=== PATIENT | female | born 1990 | race Caucasian/White ===

== ENCOUNTER 2017-10-31 18:50 | Emergency (ER) | payer BC ==
--- NOTE | 2017-10-31 19:14 | EDM.PDOC ---
ED HPI GENERAL MEDICAL PROBLEM - General Chief Complaint: General Stated Complaint: face swelling Time Seen by Provider: 10/31/17 19:00 Source of Information: Reports: Patient History Limitations: Reports: No Limitations - History of Present Illness INITIAL COMMENTS - FREE TEXT/NARRATIVE: Patient is a 27-year-old female who is seen with swelling of her face and multiple insect bites in the lower extremities with redness and swelling Onset: Gradual Duration: Day(s):, Getting Worse Location: Reports: Face, Lower Extremity, Left, Lower Extremity, Right Quality: Reports: Ache Severity: Mild Improves with: Reports: None Worsens with: Reports: Other - Related Data Allergies Allergy/AdvReac Type Severity Reaction Status Date / Time amoxicillin Allergy Hives Verified 10/31/17 19:02 Home Meds: Home Meds FLUoxetine [PROzac] 40 mg PO DAILY 10/31/17 [History] Norgestimate-Ethinyl Estradiol [Tri-Linyah Tablet] 1 tab PO DAILY 10/31/17 [ History] busPIRone [Buspar] 15 mg PO DAILY 10/31/17 [History] ED ROS GENERAL - Review of Systems Review Of Systems: See Below Constitutional: Reports: No Symptoms HEENT: Reports: Other Respiratory: Reports: No Symptoms Cardiovascular: Reports: No Symptoms Endocrine: Reports: No Symptoms GI/Abdominal: Reports: No Symptoms : Reports: No Symptoms Musculoskeletal: Reports: No Symptoms Skin: Reports: No Symptoms ED EXAM, GENERAL - Physical Exam Exam: See Below Exam Limited By: No Limitations General Appearance: Alert, WD/WN, No Apparent Distress Ears: Normal External Exam, Normal Canal, Hearing Grossly Normal, Normal TMs Ear Exam: Bilateral Ear: Auricle Normal, Canal Normal, TM normal Nose: Normal Inspection, Normal Mucosa, No Blood Throat/Mouth: Normal Inspection (e"), Normal Lips, Normal Teeth, Normal Gums, Normal Oropharynx, Normal Voice, No Airway Compromise Head: Facial Swelling Neck: Normal Inspection, Supple, Non-Tender, Full Range of Motion Respiratory/Chest: No Respiratory Distress, Lungs Clear, Normal Breath Sounds, No Accessory Muscle Use, Chest Non-Tender Cardiovascular: Normal Peripheral Pulses, Regular Rate, Rhythm, No Edema, No Gallop, No JVD, No Murmur, No Rub GI/Abdominal: Normal Bowel Sounds, Soft, Non-Tender, No Organomegaly, No Distention, No Abnormal Bruit, No Mass (Female) Exam: Deferred Rectal (Female) Exam: Deferred Back Exam: Normal Inspection, Full Range of Motion, NT Extremities: Normal Inspection, Normal Range of Motion, Non-Tender, Normal Capillary Refill, No Pedal Edema Neurological: Alert, Oriented, CN II-XII Intact, Normal Cognition, Normal Gait, Normal Reflexes, No Motor/Sensory Deficits Psychiatric: Normal Affect, Normal Mood Skin Exam: Rash (Lower extremity) Lymphatic: No Adenopathy Departure - Departure Time of Disposition: 19:13 Disposition: Home, Self-Care 01 Condition: Fair Clinical Impression: Insect bite - Discharge Information Instructions: Preventing Mosquito-Borne Illnesses Care Plan Goals: Patient will be started on prednisone 20 mg twice a day for 5 days days
== END 2017-10-31 19:34 | disposition home or self-care (01) ==
LOC: LL.ED 18:50
DX: S80.862A Insect bite (nonvenomous), left lower leg, initial encounter (principal); S80.861A Insect bite (nonvenomous), right lower leg, initial encounter; S00.86XA Insect bite (nonvenomous) of other part of head, initial encounter; Z88.0 Allergy status to penicillin; Z88.1 Allergy status to other antibiotic agents; Z79.899 Other long term (current) drug therapy; W57.XXXA Bitten or stung by nonvenomous insect and other nonvenomous arthropods, initial encounter
CPT/HCPCS: 99283

== ENCOUNTER 2020-06-21 15:54 | Emergency (ER) | payer BC ==
[2020-06-21] MEDS ORDERED: Sodium Chloride 0.9% 10 ML Syringe FLUSH PRN (16:22)
[2020-06-21] MEDS ORDERED: Sodium Chloride 0.9% 1,000 ML IV ONE (16:56)
[2020-06-21] MEDS ORDERED: Ondansetron 4 MG/2 ML SDV IVPUSH ONE (16:57)
[2020-06-21] MEDS ORDERED: Meclizine 25 MG Tab PO ONE (16:57)
[2020-06-21 17:00] LABS: CHLORIDE,CL 104 mmol/L (98-107); SODIUM,NA 140 mmol/L (136-145)
[2020-06-21] MEDS ORDERED: SUMAtriptan 6 MG/0.5 ML SDV SUBCUT ONE (17:06)
--- NOTE | 2020-06-21 17:13 | EDM.PDOC ---
ED HPI GENERAL MEDICAL PROBLEM - General Chief Complaint: General Stated Complaint: Dizziness, Neck Pain Time Seen by Provider: 06/21/20 16:21 Source of Information: Reports: Patient History Limitations: Reports: No Limitations - History of Present Illness INITIAL COMMENTS - FREE TEXT/NARRATIVE: Patient comes to ER due to sudden dizziness she experienced this morning after getting out of shower. Describes spinning sensation, nausea and emesis. Best thing at time was to lay on back completely still for two hours until things improved to point where she could move with less severe consequences. Reports sore neck for several days on right. Improved after seeing chiropractor yesterday. She did almost fall three days ago but caught self before actually falling. Noticed the neck pain develop during sleep that following night. [place] chilled this morning. Had mild sore throat this morning but that resolved. Has headache today. Feels weaker than usual. No runny nose/sore throat/ear pain. No cough/wheeze/SOB. No chest/back/abdominal/limb pain. No bowel changes. No UTI complaints. Took home test which was negative. Attended [employer] this past weekend. No one else in household is ill. Headache Pain Score (Numeric/FACES): 6 - Related Data Allergies Allergy/AdvReac Type Severity Reaction Status Date / Time amoxicillin Allergy Hives Verified 06/21/20 17:11 Home Meds: Home Meds FLUoxetine [PROzac] 40 mg PO DAILY 10/31/17 [History] busPIRone [Buspar] 15 mg PO DAILY 10/31/17 [History] norgestimate-ethinyl estradioL [Tri-Linyah Tablet] 1 tab PO QPM 10/31/17 [History] Acyclovir 400 mg PO DAILY 06/21/20 [History] Cyclobenzaprine [Flexeril] 10 mg PO TID PRN #15 tab 06/21/20 [Rx] L.acidoph,Paracasei, B.lactis [Probiotic] 2 tab PO DAILY 06/21/20 [History] Magnesium Glycinate, Mag Oxide [Magnesium Glycinate] 120 mg PO DAILY 06/21/20 [History] Meclizine HCl 25 mg PO Q6HR PRN #30 tablet 06/21/20 [Rx] Non-Formulary Medication [NF Drug] 1 tab PO DAILY 06/21/20 [History] Non-Formulary Medication [NF Drug] 1 tab PO DAILY 06/21/20 [History] Non-Formulary Medication [NF Drug] 1 tab PO DAILY 06/21/20 [History] Ondansetron [Zofran ODT] 4 mg PO Q6H PRN #15 tab.dis 06/21/20 [Rx] Ondansetron [Zofran] 4 mg PO Q4HR PRN 06/21/20 [History] Vitamin B Complex [B Complex] 1 tab PO DAILY 06/21/20 [History] Past Medical History - Past Health History Medical/Surgical History: Denies Medical/Surgical History Social & Family History - Tobacco Use Tobacco Use Status *Q: Former Tobacco User (quit 2008) - Alcohol Use Alcohol Use History: Yes Alcohol Use Frequency: Socially ED ROS GENERAL - Review of Systems Review Of Systems: Comprehensive ROS is negative, except as noted in HPI. ED EXAM, GENERAL - Physical Exam Exam: See Below Exam Limited By: No Limitations General Appearance: Alert, WD/WN, No Apparent Distress Eye Exam: Bilateral Eye: EOMI, PERRL Ears: Normal External Exam, Normal Canal, Hearing Grossly Normal, Normal TMs Nose: No: Nasal Deformity, Nasal Swelling, Nasal Drainage Throat/Mouth: Normal Lips, Normal Voice, No Airway Compromise Head: Atraumatic, Normocephalic Neck: Normal Inspection, Supple, Non-Tender, Full Range of Motion, Other (minimal tenderness with palpation of right SCM muscle). No: Lymphadenopathy (L), Lymphadenopathy (R) Respiratory/Chest: No Respiratory Distress, Lungs Clear, Normal Breath Sounds, No Accessory Muscle Use, Chest Non-Tender Cardiovascular: Regular Rate, Rhythm, No Edema, No Murmur GI/Abdominal: Normal Bowel Sounds, Soft, Non-Tender, No Distention (Female) Exam: Deferred Rectal (Female) Exam: Deferred Back Exam: No: CVA Tenderness (L), CVA Tenderness (R), Muscle Spasm, Paraspinal Tenderness, Vertebral Tenderness Extremities: Normal Range of Motion, Non-Tender, No Pedal Edema, Normal Capillary Refill Neurological: Alert, Oriented, CN II-XII Intact, Normal Cognition, Normal Gait, No Motor/Sensory Deficits Psychiatric: Normal Affect, Normal Mood Skin Exam: Warm, Dry, Intact, Normal Color, No Rash Course - Vital Signs Last Recorded V/S: Last Vital Signs Temp 37.9 C 06/21/20 16:10 Pulse 77 06/21/20 16:10 Resp 18 06/21/20 16:10 BP 129/79 06/21/20 16:10 Pulse Ox 100 06/21/20 16:10 - Orders/Labs/Meds Orders: Active Orders 24 hr Category Date Time Status C-Spine [Cervical Spine wo Cont] [CT] Stat Exams 06/21/20 16:22 Taken Head wo Cont [CT] Stat Exams 06/21/20 16:21 Taken CULTURE STREP A CONFIRMATION [RM] Stat Lab 06/21/20 17:35 Results STREP SCRN A RAPID W CULT CONF [RM] Stat Lab 06/21/20 17:35 Results Sodium Chloride 0.9% [Saline Flush] Med 06/21/20 16:22 Active 10 ml FLUSH ASDIRECTED PRN Isolation [COMM] Routine Oth 06/21/20 16:13 Active Saline Lock Insert [OM.PC] Routine Oth 06/21/20 16:22 Ordered Medication Orders Sodium Chloride (Saline Flush) 10 ml FLUSH ASDIRECTED PRN PRN Reason: Keep Vein Open Labs: Laboratory Tests 06/21/20 06/21/20 06/21/20 Range/Units 16:14 16:23 16:23 WBC (4.0-10.2) K/uL RBC (3.77-5.09) M/uL Hgb (11.7-15.5) g/dL Hct (34.0-46.0) % MCV (84.0-98.0) fL MCH (28.2-33.3) pg MCHC (31.7-36.0) g/dL RDW (11.2-14.1) % Plt Count (150-350) K/uL Neut % (Auto) (45.0-80.0) % Lymph % (Auto) (10.0-50.0) % [place] % (Auto) (2.0-14.0) % Eos % (Auto) (0.0-5.0) % Baso % (Auto) (0.0-2.0) % Neut # (Auto) (1.40-7.00) K/uL Lymph # (Auto) (0.50-3.50) K/uL [place] # (Auto) (0.00-1.00) K/uL Eos # (Auto) (0.00-0.50) K/uL Baso # (Auto) (0.00-0.20) K/uL Sodium (136-145) mmol/L Potassium (3.5-5.1) mmol/L Chloride (98-107) mmol/L Carbon Dioxide (21.0-32.0) mmol/L BUN (7-18) mg/dL Creatinine (0.51-1.17) mg/dL Est Cr Clr Drug Dosing Estimated GFR (MDRD) mL/min Glucose (70-99) mg/dL Lactic Acid (0.4-2.0) mmol/L Calcium (8.5-10.1) mg/dL Magnesium (1.8-2.4) mg/dL Total Bilirubin (0.2-1.0) mg/dL AST (15-37) U/L ALT (12-78) U/L Alkaline Phosphatase (46-116) IU/L Total Protein (6.4-8.2) g/dL Albumin (3.4-5.0) g/dL Specimen Type Urinblad Urine Color Yellow Urine Appearance Clear Urine pH 8.5 (5.0-9.0) Ur Specific [place] 1.020 (1.005-1.030) Urine Protein Negative (NEGATIVE) mg/dL Urine Glucose (UA) Negative (NEGATIVE) mg/dL Urine Ketones Negative (NEGATIVE) mg/dL Urine Occult Blood Negative (NEGATIVE) Urine Nitrite Negative (NEGATIVE) Urine Bilirubin Negative (NEGATIVE) Urine Urobilinogen 0.2 (0.2-1.0) E.U./dL Ur Leukocyte Esterase Negative (NEGATIVE) Urine RBC Not seen /HPF Urine WBC Not seen /HPF Urine Bacteria Not seen (NONE TO FEW) /HPF Urine HCG, Qual Negative SARS-CoV-2 RNA (LORENA) Negative (NEGATIVE) 06/21/20 06/21/20 06/21/20 Range/Units 16:35 16:35 16:35 WBC 9.5 (4.0-10.2) K/uL RBC 4.59 (3.77-5.09) M/uL Hgb 13.8 (11.7-15.5) g/dL Hct 41.3 (34.0-46.0) % MCV 90.0 (84.0-98.0) fL MCH 30.1 (28.2-33.3) pg MCHC 33.4 (31.7-36.0) g/dL RDW 13.5 (11.2-14.1) % Plt Count 236 (150-350) K/uL Neut % (Auto) 81.6 H (45.0-80.0) % Lymph % (Auto) 12.7 (10.0-50.0) % [place] % (Auto) 5.4 (2.0-14.0) % Eos % (Auto) 0.1 (0.0-5.0) % Baso % (Auto) 0.2 (0.0-2.0) % Neut # (Auto) 7.72 H (1.40-7.00) K/uL Lymph # (Auto) 1.20 (0.50-3.50) K/uL [place] # (Auto) 0.51 (0.00-1.00) K/uL Eos # (Auto) 0.01 (0.00-0.50) K/uL Baso # (Auto) 0.02 (0.00-0.20) K/uL Sodium 140 (136-145) mmol/L Potassium 3.6 (3.5-5.1) mmol/L Chloride 104 (98-107) mmol/L Carbon Dioxide 25.9 (21.0-32.0) mmol/L BUN 10 (7-18) mg/dL Creatinine 0.68 (0.51-1.17) mg/dL Est Cr Clr Drug Dosing TNP Estimated GFR (MDRD) > 60 mL/min Glucose 110 H (70-99) mg/dL Lactic Acid 1.0 (0.4-2.0) mmol/L Calcium 9.3 (8.5-10.1) mg/dL Magnesium 1.8 (1.8-2.4) mg/dL Total Bilirubin 0.4 (0.2-1.0) mg/dL AST 18 (15-37) U/L ALT 26 (12-78) U/L Alkaline Phosphatase 62 (46-116) IU/L Total Protein 7.4 (6.4-8.2) g/dL Albumin 3.8 (3.4-5.0) g/dL Specimen Type Urine Color Urine Appearance Urine pH (5.0-9.0) Ur Specific [place] (1.005-1.030) Urine Protein (NEGATIVE) mg/dL Urine Glucose (UA) (NEGATIVE) mg/dL Urine Ketones (NEGATIVE) mg/dL Urine Occult Blood (NEGATIVE) Urine Nitrite (NEGATIVE) Urine Bilirubin (NEGATIVE) Urine Urobilinogen (0.2-1.0) E.U./dL Ur Leukocyte Esterase (NEGATIVE) Urine RBC /HPF Urine WBC /HPF Urine Bacteria (NONE TO FEW) /HPF Urine HCG, Qual SARS-CoV-2 RNA (LORENA) (NEGATIVE) Meds: Medications Generic Name Dose Route Start Last Admin Trade Name Freq PRN Reason Stop Dose Admin Sodium Chloride 10 ml 06/21/20 16:22 Saline Flush FLUSH ASDIRECTED PRN Keep Vein Open Discontinued Medications Generic Name Dose Route Start Last Admin Trade Name Freq PRN Reason Stop Dose Admin Diazepam 5 mg 06/21/20 18:16 Valium. PO 06/21/20 18:17 ONETIME ONE Diphenhydramine HCl 50 mg 06/21/20 18:16 Benadryl IVPUSH 06/21/20 18:17 ONETIME ONE Sodium Chloride 1,000 mls @ 999 mls/hr 06/21/20 16:56 06/21/20 17:04 Normal Saline IV 06/21/20 17:56 999 mls/hr .BOLUS ONE Administration Ketorolac Tromethamine 30 mg 06/21/20 18:16 Toradol IVPUSH 06/21/20 18:17 ONETIME ONE Meclizine HCl 25 mg 06/21/20 16:57 06/21/20 17:03 Antivert PO 06/21/20 16:58 25 mg ONETIME ONE Administration Ondansetron HCl 4 mg 06/21/20 16:57 06/21/20 17:03 Zofran IVPUSH 06/21/20 16:58 4 mg ONETIME ONE Administration Sumatriptan Succinate 6 mg 06/21/20 17:06 06/21/20 17:28 Imitrex SUBCUT 06/21/20 17:07 6 mg ONETIME ONE Administration - Re-Assessments/Exams Free Text/Narrative Re-Assessment/Exam: 06/21/20 17:15 CT of head performed given the sudden headache/dizziness sensation to rule out aneurysm or other intracranial abnormality. Neck CT added given patient's neck pain since her slipping on the ice and due to patient's request for more thorough study vs plain films. Labs requested. No focal finding on exam. No nystagmus noted. IV NS bolus/Zofran/Meclizine/Imitrex ordered. 06/21/20 18:18 Headache is now a 4. Still has sore stiff right side neck. CT of head and neck negative. Labs unremarkable. Negative Covid/influenza/strep. Patient's symptoms of nausea/vertigo/right sided neck tightness may be related and secondary to her slipping on ice/catching self earlier this week. Given sore throat/feeling weak/mild temp elevation that is more suggestive of possible developing illness such as acute viral infection. Overall nonfocal exam and unremarkable labs. Plan at this time is to let her go home and observe changes and how she feels over the next 24 hours. To follow up as needed. Recheck if she starts feeling worse or if symptoms have not improved over weekend. Meclizine PRN dizziness. Zofran PRN nausea. Flexeril for muscle relaxant/neck tightness. Patient in agreement with plan. Departure - Departure Time of Disposition: 18:33 Disposition: Home, Self-Care 01 Condition: Good Clinical Impression: Vertigo, Neck pain on right side, Feeling sick - Discharge Information *PRESCRIPTION DRUG MONITORING PROGRAM REVIEWED*: Not Applicable *COPY OF PRESCRIPTION DRUG MONITORING REPORT IN PATIENT EDUARD: Not Applicable Prescriptions: Cyclobenzaprine [Flexeril] 10 mg PO TID PRN #15 tab PRN Reason: Spasms Meclizine HCl 25 mg PO Q6HR PRN #30 tablet PRN Reason: Dizziness Ondansetron [Zofran ODT] 4 mg PO Q6H PRN #15 tab.dis PRN Reason: Nausea Instructions: Vertigo, [id number] Referrals: PCP,None [Primary Care Provider] - Forms: ED Department Discharge, ED Return to Work/School Form Additional Instructions: Watch and see how you feel over the next 24-48 hours. See if you develop any additional symptoms suggestive of a viral infection such as diarrhea or cough. Take Meclizine one every 6-8 hours to help with "the spins". This is over the counter but we sent a prescription form to the pharmacy so they know we want you to have some on hand. Take Zofran as needed for nausea. Take Flexeril for muscle tightness. You have borderline low magnesium. Recommend doubling your current magnesium dose you are taking. Rest and stay hydrated. Follow up if you have worsening problems or symptoms just do not seem to want to improve over the weekend. Call if you have questions. Sepsis Event Note (ED) - Evaluation Sepsis Screening Result: No Definite Risk - Focused Exam Vital Signs: Vital Signs Temp Pulse Resp BP Pulse Ox 06/21/20 16:10 37.9 C 77 18 129/79 100 - My Orders Last 24 Hours: My Active Orders 06/21/20 16:13 Isolation [COMM] Routine 06/21/20 16:21 Head wo Cont [CT] Stat 06/21/20 16:22 C-Spine [Cervical Spine wo Cont] [CT] Stat Sodium Chloride 0.9% [Saline Flush] 10 ml FLUSH ASDIRECTED PRN Saline Lock Insert [OM.PC] Routine 06/21/20 17:35 CULTURE STREP A CONFIRMATION [RM] Stat STREP SCRN A RAPID W CULT CONF [RM] Stat - Assessment/Plan Last 24 Hours: My Active Orders 06/21/20 16:13 Isolation [COMM] Routine 06/21/20 16:21 Head wo Cont [CT] Stat 06/21/20 16:22 C-Spine [Cervical Spine wo Cont] [CT] Stat Sodium Chloride 0.9% [Saline Flush] 10 ml FLUSH ASDIRECTED PRN Saline Lock Insert [OM.PC] Routine 06/21/20 17:35 CULTURE STREP A CONFIRMATION [RM] Stat STREP SCRN A RAPID W CULT CONF [RM] Stat
[2020-06-21] MEDS ORDERED: diphenhydrAMINE 50 MG/ML SDV IVPUSH ONE (18:16)
[2020-06-21] MEDS ORDERED: Ketorolac 30 MG/ML SDV IVPUSH ONE (18:16)
[2020-06-21] MEDS ORDERED: Diazepam 5 MG Tab PO ONE (18:16)
== END 2020-06-21 19:07 | disposition home or self-care (01) ==
LOC: LL.ED 15:54
DX: R42 Dizziness and giddiness (principal); M54.2 Cervicalgia; R51.9 Headache, unspecified; Z87.891 Personal history of nicotine dependence; Z20.822 Contact with and (suspected) exposure to COVID-19; Z88.0 Allergy status to penicillin
CPT/HCPCS: 36415; 70450; 72125; 80053; 81001; 81025; 83605; 83735; 85025; 87081; 87430; 87635; 87804; 96372; 96374; 96375; 99284; A9270; J1200; J1885; J2405; J3030; J7030; 99283; U0002

== ENCOUNTER 2023-11-22 19:19 | Emergency (ER) | payer OTHER ==
[2023-11-22 19:43] LABS: BASOPHILS ABSOLUTE AUTO 0.01 K/uL (0.00-0.20); BASOPHILS PERCENT AUTO 0.1 % (0.0-2.0); HEMATOCRIT 41.1 % (34.0-46.0); HEMOGLOBIN 13.7 g/dL (11.7-15.5); LYMPHOCYTES ABSOLUTE AUTO 1.45 K/uL (0.50-3.50); LYMPHOCYTES PERCENT AUTO 10.3 % (10.0-50.0); MEAN CORPUSCULAR HEMOGLOBIN 30.5 pg (28.2-33.3); MEAN CORPUSCULAR HGB CONC 33.3 g/dL (31.7-36.0); MEAN CORPUSCULAR VOLUME 91.5 fL (84.0-98.0); MONOCYTES ABSOLUTE AUTO 1.07 K/uL (0.00-1.00); MONOCYTES PERCENT AUTO 7.6 % (2.0-14.0); PLATELET COUNT,PLT 228 K/uL (150-350); RED BLOOD CELL COUNT 4.49 M/uL (3.77-5.09); RED CELL DISTRIBUTION WIDTH 13.9 % (11.2-14.1)
[2023-11-22] MEDS: Ondansetron 4 MG/2 ML SDV IVPUSH ONE ×2 (19:48→22:41)
[2023-11-22] MEDS: Morphine 2 MG/ML SYRINGE IVPUSH ONE ×3 (19:48→22:56)
[2023-11-22] MEDS: Sodium Chloride 0.9% 1,000 ML IV ONE (19:49)
[2023-11-22 19:53] LABS: ALBUMIN 3.9 g/dL (3.4-5.0); ANION GAP 6.9 meq/L (7-15); BILIRUBIN TOTAL 0.8 mg/dL (0.2-1.0); CALCIUM 8.9 mg/dL (8.5-10.1); CARBON DIOXIDE,CO2 30.1 mmol/L (21.0-32.0); CREATININE 0.85 mg/dL (0.51-1.17); EST CRCL DRUG DOSING (CG) 93.19 mL/min; MAGNESIUM 1.4 mg/dL (1.8-2.4); POTASSIUM,K 3.9 mmol/L (3.5-5.1); PROTEIN TOTAL,TP 7.3 g/dL (6.4-8.2)
[2023-11-22] MEDS ORDERED: Iopamidol 612 MG/ML 100 ML Bottle IVPUSH STA (19:54)
[2023-11-22] MEDS: Magnesium Sulfate/Water 2 GM in Premix Bag 1 BAG IV ONE (20:47)
[2023-11-22 21:16] LABS: APPEARANCE,URINE CLEAR; BILIRUBIN,URINE NEGATIVE (NEGATIVE); COLOR,URINE YELLOW; GLUCOSE,URINE NEGATIVE (NEGATIVE); KETONES,URINE NEGATIVE (NEGATIVE); LEUKOCYTE ESTERASE,URINE NEGATIVE (NEGATIVE); NITRITE,URINE NEGATIVE (NEGATIVE); OCCULT BLOOD,URINE NEGATIVE (NEGATIVE); PH,URINE 7.5 (5.0-9.0); PROTEIN,URINE NEGATIVE (NEGATIVE); UROBILINOGEN,URINE 0.2 E.U./dL (0.2-1.0)
[2023-11-22] MEDS: Morphine 4 MG/ML Syringe IVPUSH ONE (22:01)
[2023-11-22] MEDS: metroNIDAZOLE/Normal Saline 500 MG in Premix Bag 1 BAG IV ONE (22:03)
[2023-11-22] MEDS: Sodium Chloride 0.9% 10 ML Syringe FLUSH PRN (22:06)
[2023-11-22] MEDS: cefTRIAXone 2 GM Vial IVPUSH ONE (22:10)
[2023-11-22] MEDS ORDERED: Sodium Chloride 0.9% 250 ML IV SCH (22:15)
[2023-11-22] MEDS ORDERED: Naloxone 0.4 MG/ML SDV IVPUSH PRN (22:19)
[2023-11-22] MEDS: Promethazine 25 MG/ML SDV IM ONE (22:41)
== END 2023-11-22 23:05 ==
LOC: LL.ED 19:19
DX: K35.30 Acute appendicitis with localized peritonitis, without perforation or gangrene (principal); E83.42 Hypomagnesemia; Z88.0 Allergy status to penicillin; Z79.899 Other long term (current) drug therapy
CPT/HCPCS: 36415; 74177; 80053; 81003; 83605; 83735; 84703; 85025; 96365; 96366; 96368; 96372; 96375; 96376; 99285-25; J0696; J1836; J2270; J2405; J2550; J3475; J3490; J7030; Q9967